=== PATIENT | female | born 1960 | race Caucasian/White ===

== ENCOUNTER 2024-04-13 12:10 | Inpatient (IN) | payer OTHER ==
[2024-04-13 12:33] VITALS: BMI 20.2
[2024-04-13] MEDS ORDERED: ONDANSETRON *ODT* 4 MG TABLET SL PRN (12:35)
[2024-04-13] MEDS ORDERED: BENZOCAINE/MENTHOL (CHLORASEPTIC ) LOZENGE MM PRN (12:35)
[2024-04-13] MEDS ORDERED: NICOTINE POLACRILEX 2 MG GUM BUC PRN (12:35)
[2024-04-13] MEDS ORDERED: LOPERAMIDE HCL 2 MG CAPSULE PO PRN (12:35)
[2024-04-13] MEDS ORDERED: IBUPROFEN 400 MG TABLET (FP) PO PRN (12:35)
[2024-04-13] MEDS ORDERED: BISMUTH SUBSALICYLATE 262 MG/15 ML BTL PO PRN (12:35)
[2024-04-13] MEDS ORDERED: NALOXONE (NARCAN) HCL 4 MG/0.1 ML SPRAY NS PRN (12:35)
[2024-04-13] MEDS ORDERED: guaiFENesin 600 MG TABLET.ER (FP) PO PRN (12:35)
[2024-04-13] MEDS ORDERED: POLYETHYLENE GLYCOL (HEALTHYLAX) 3350 17 GM PACKET PO PRN (12:35)
[2024-04-13] MEDS ORDERED: ACETAMINOPHEN 325 MG TABLET (FP) PO PRN (12:35)
[2024-04-13] MEDS ORDERED: DICYCLOMINE HCL 10 MG CAPSULE PO PRN (12:35)
[2024-04-13] MEDS ORDERED: MAGNESIUM HYDROX 2400MG/30ML ORAL SUSPENSION 30 ML CUP PO PRN (12:35)
[2024-04-13] MEDS ORDERED: NICOTINE POLACRILEX 2 MG LOZENGE BC PRN (12:35)
[2024-04-13] MEDS ORDERED: MAG HYDROX/AL HYDROX/SIMETH 30 ML UNIT-DOSE CUP PO PRN (12:35)
[2024-04-13] MEDS ORDERED: BENZONATATE 200 MG CAPSULE PO PRN (12:35)
[2024-04-13] MEDS: amLODIPine BESYLATE 10 MG TABLET (FP) PO ONE (13:53)
[2024-04-13] MEDS: METHOCARBAMOL 500 MG TABLET PO PRN (16:00)
[2024-04-13] MEDS: IBUPROFEN 600 MG TABLET (FP) PO PRN (17:25)
[2024-04-13] MEDS: hydrOXYzine PAMOATE 25 MG CAPSULE (FP) PO ONE (20:25)
[2024-04-13] MEDS: MELATONIN 5 MG TABLETS PO SCH (22:23)
[2024-04-13] MEDS: THIAMINE 100 MG TABLET PO SCH (22:23)
[2024-04-14] MEDS: NICOTINE 7 MG/24 HOURS TOPICAL PATCH TD SCH (09:19)
[2024-04-14] MEDS: LOSARTAN POTASSIUM 50 MG TABLET PO SCH (09:20)
[2024-04-14] MEDS: PRENATAL VITAMINS W/ FOLIC ACID TABLET (FP) PO SCH (09:20)
[2024-04-14] MEDS: PANTOPRAZOLE 40 MG TABLET PO SCH (09:20)
[2024-04-14 09:27] LABS: HEMATOCRIT 32.9 % (32.4-45.2); MCH 26.1 pg (25.7-33.7); MCHC 33.4 g/dl (32.0-36.0); MEAN CELL VOLUME 78.3 fl (80-96); MEAN PLT VOLUME 7.5 fl (7.5-11.1); PLATELET COUNT 177 10^3/uL (134-434); WHITE BLOOD COUNT 3.4 K/mm3 (4.0-10.0)
[2024-04-14 09:44] LABS: CHLORIDE 104 mmol/L (98-107); POTASSIUM 3.5 mmol/L (3.5-5.1); SODIUM 133 mmol/L (136-145)
[2024-04-14 09:56] LABS: ALBUMIN 3.7 g/dl (3.4-5.0); ANION GAP 8 mmol/L (4-13); CALCIUM 8.7 mg/dL (8.5-10.1); CO2 21 mmol/L (21-32); GLUCOSE,RANDOM 133 mg/dL (74-106)
[2024-04-14 10:00] LABS: CREATININE 0.5 mg/dL (0.55-1.3); SGOT/AST 16 U/L (15-37); SGPT/ALT 14 U/L (13-61)
[2024-04-14 10:01] LABS: BILIRUBIN,TOTAL 0.8 mg/dL (0.2-1); TOT PROT 6.7 g/dl (6.4-8.2)
[2024-04-14 10:02] LABS: ALK PHOS 94 U/L (45-117)
[2024-04-14] MEDS: LORazepam 1 MG TABLET PO SCH (10:45)
[2024-04-14] MEDS ORDERED: LORazepam 2 MG TABLET PO SCH ×2 (11:00)
[2024-04-14] MEDS: traZODone HCL 50 MG TABLET (FP) PO SCH (22:07)
[2024-04-15] MEDS: LORazepam 1 MG TABLET PO SCH (05:32)
[2024-04-15] MEDS: LORazepam 1 MG TABLET PO PRN (10:10)
[2024-04-15] MEDS: GABAPENTIN 300 MG CAPSULE PO SCH (21:57)
[2024-04-15] MEDS ORDERED: GABAPENTIN 300 MG CAPSULE PO SCH (22:00)
[2024-04-16] MEDS: LORazepam 0.5 MG TABLET PO SCH (05:54)
[2024-04-16] MEDS: LORazepam 0.5 MG TABLET PO PRN (14:10)
[2024-04-16] MEDS: NALTREXONE HCL 50 MG TABLET PO SCH (15:26)
[2024-04-16] MEDS: NALTREXONE HCL 50 MG TABLET PO ONE (15:27)
[2024-04-16] MEDS: ACAMPROSATE CALCIUM 333 MG TABLET.DR PO SCH (15:46)
[2024-04-16] MEDS: traZODone HCL 50 MG TABLET (FP) PO ONE (23:35)
[2024-04-17] MEDS: LORazepam 0.5 MG TABLET PO ONE (05:55)
[2024-04-17 09:15] VITALS: BP 135/77; PULSE 89; RESP 16; TEMP 97.8
== END 2024-04-17 10:15 | disposition home or self-care (01) | DRG 775 ==
LOC: YASAS 12:10 → Y6N 13:05 → UNDODISIN 04-15 10:45
PROVIDERS: ADMIT Allergy & Immunology; ATTEND Allergy & Immunology
PROC: HZ2ZZZZ Detoxification Services for Substance Abuse Treatment (ICD-10-PCS; principal; 2024-04-13)
DX: F10.230 Alcohol dependence with withdrawal, uncomplicated (principal); F17.213 Nicotine dependence, cigarettes, with withdrawal; F10.282 Alcohol dependence with alcohol-induced sleep disorder; F10.280 Alcohol dependence with alcohol-induced anxiety disorder; F10.24 Alcohol dependence with alcohol-induced mood disorder; F32.A Depression, unspecified; I10 Essential (primary) hypertension; K21.9 Gastro-esophageal reflux disease without esophagitis; M79.2 Neuralgia and neuritis, unspecified; R63.4 Abnormal weight loss; Z68.20 Body mass index [BMI] 20.0-20.9, adult; Z85.41 Personal history of malignant neoplasm of cervix uteri; Z85.21 Personal history of malignant neoplasm of larynx
CPT/HCPCS: 36415; 80053; 80305; 80307; 85027; 86780; 93005; 93010